=== PATIENT | female | born 1955 | race Caucasian/White ===

== ENCOUNTER 2017-09-13 17:55 | Observation (INO) ==
--- NOTE | 2017-09-13 18:20 | Emergency Department Note ---
Disposition Clinical Impression: Strain of lumbar region Qualifiers: Encounter type: subsequent encounter Qualified Code(s): S39.012D - Strain of muscle, fascia and tendon of lower back, subsequent encounter Disposition: Admitted As Inpatient Condition: Good Referrals: NONE,PCP [Primary Care Provider] - Coleman Hayward DO [Family Provider] - Forms: ED Satisfaction Letter Fall HPI - General Chief Complaint: ED Back Pain/Injury Stated Complaint: fall 2-4 days ago Time Seen by Provider: 09/13/17 18:13 Source: patient, EMS Mode of arrival: EMS Limitations: no limitations Nursing Notes Reviewed: Yes Vital Signs Reviewed: Yes - History of Present Illness HPI Narrative: Patient reports she had fallen at [facility]. She states she was picking something up and she fell backwards landing in a semisitting position. She states that she did not hit her head or sustain any other point of injury. She states she has had increased pain in her mid low back that this has been worse for 3-4 days. She relates she was seen at [place] urgent care 2-3 days ago and was told she could have a herniated disc. I reviewed the records and she was seen at urgent care on August 19 for chronic low back and thoracic pain. No other record is seen. She now reports increased pain in her low back that goes to the right leg. She denies any bladder or bowel troubles. She denies groin numbness nor any lower extremity numbness, tingling or weakness. She states that she called the squad today because she was sitting on the couch and she "could not move because of pain". The squad reports that they arrived at her house and she ambulated to open her door, hurried back to the couch, sat down and "said she could not move". Family advised the squad that they had concerns more for some alcohol use then for the back pain. Patient does report a long history of low back pain and states that her "back is bad". She states she has degenerative disc disease that has been evaluated by CT and MRI at [facility] . She states she is on SSI because of her chronic low back pain. She cannot recall the name of her physician or service at [facility]. She denies any fevers, chills or abdominal pain. She denies being on any type of anticoagulant. She states she was given a short course of gabapentin that did not help. She does not have to use of vodka. Pt Subjective Complaint: fall Onset (ago): day(s) Fall From: standing Place Fall Occurred: work Loss of Consciousness: none Prolonged Down Time?: no Symptoms Prior to Fall: none Context: tripped/slipped Location of injury: back Severity: moderate, severe Quality: sharp, dull, aching Associated symptoms (after fall): Denies: headache, neck pain, numbness, weakness, chest pain, shortness of breath, abdominal pain, hematuria, unable to walk, lightheaded, vertigo, confusion - Related Data Previous Rx's Medication Instructions Recorded Lisinopril [Zestril] 20 mg PO DAILY #30 tablet 04/03/17 Omeprazole [PriLOSEC] 40 mg PO DAILY #30 cap 04/03/17 Cyclobenzaprine [Flexeril] 10 mg PO TID #20 tablet 08/19/17 Gabapentin [Neurontin] 300 mg PO TID #20 capsule 08/19/17 Lidocaine Patch [Lidoderm 5% patch] 1 each TP DAILY #7 adh..patch 08/19/17 methylPREDNISolone [Medrol] 4 mg PO DAILY 6 Days #21 tablet 08/19/17 Allergies Allergy/AdvReac Type Severity Reaction Status Date / Time metoclopramide [From Reglan] Allergy Muscle Pain Verified 08/19/17 17:09 codeine AdvReac Gastrointestinal Verified 08/19/17 17:09 Upset All systems ED: reviewed and negative except as stated. Fall PMH - Past Medical History Medical history: Reports: cancer, GERD, hypertension, other (Alcoholism per family) Surgical history: Reports: hysterectomy, other ("Surgery on stomach sphincter") Psychiatric history: Reports: anxiety LOOM MECHANIC history: Reports: no LOOM MECHANIC history - Social History Smoking Status: Never smoker Alcohol use: Reports: occasionally Drug use: Reports: none Physical Exam - General Limitations: no limitations General appearance: alert, in no apparent distress, anxious - Head Head exam: atraumatic, normocephalic, normal inspection - Eye Eye exam: Present: normal appearance, PERRL, EOMI - ENT ENT exam: normal exam, normal oropharynx, mucous membranes moist - Neck Neck exam: Present: normal inspection, full ROM, trachea midline - Chest Chest inspection: Present: normal inspection, symmetric chest wall rise - Respiratory Respiratory exam: Present: normal lung sounds bilaterally. Absent: respiratory distress, wheezes, prolonged expiratory phase - Cardiovascular Cardiovascular exam: Present: regular rate, normal rhythm, normal heart sounds - Abdominal Exam Abdominal exam: Present: soft, Non-Tender, normal bowel sounds. Absent: tenderness, distention, guarding, rebound, rigidity, Doan's sign, tenderness at McBurney's Point - Extremities Exam Extremities exam: Present: normal inspection, full ROM, normal capillary refill. Absent: tenderness, pedal edema, calf tenderness - Expanded Lower Extremity Exam Neurovascular/Tendon exam: Present: normal capillary refill. Absent: motor deficit, sensory deficit, tendon deficit Gait: observed and normal, not tested/not observed - Back Exam Back exam: Present: normal inspection, full ROM, tenderness (Diffuse), paraspinal tenderness, vertebral tenderness (Midline lumbar), other (When I encourage the patient to log rolled to the side she tripped herself over to the left side without any difficulty for examination of her back.). Absent: CVA tenderness (R), CVA tenderness (L), muscle spasm, sciatic notch tenderness (R), sciatic notch tenderness (L), straight leg raise (R), straight leg raise (L) - Neurological Exam Neurological exam: Present: alert, oriented X3, CN II-XII intact, normal gait ( With assistance, to and from the bathroom.), reflexes normal (1+ bilateral patella and ankle jerks). Absent: motor sensory deficit - Psychiatric Psychiatric exam: Present: agitated, anxious - Skin Skin exam: Present: warm, dry, intact, normal color. Absent: diaphoresis, pallor Course Course Narrative: Patient has been very often affect and boisterous in the department. The patient has come to the emergency department with a bottle of blue Powerade that is suspected to have vodka in it. The patient does admit to drinking vodka. This bottle has been taken away from her and radiology by the x-ray tech. After this the patient has had an alcohol level return of 451. We will await the return of the radiology read on the lumbar spine but believe she will need observed with [facility] protocol. 1933: Patient's imaging results and lab results are discussed with the patient. I advised her that I would like to start her on treatment for her alcohol and observe her for the night. She is agreeable with this and Dr. Malloy has been contacted. He is agreeable with her observation. Verbal orders are obtained for her admission. Vital Signs Temperature 98.9 F 09/13/17 18:00 Pulse Rate 108 09/13/17 18:00 Respiratory Rate 18 09/13/17 18:00 Blood Pressure 151/100 09/13/17 18:00 O2 Sat by Pulse Oximetry 95 09/13/17 18:00 Temperature 98.9 F 09/13/17 18:00 Pulse Rate 108 09/13/17 18:00 Respiratory Rate 18 09/13/17 18:00 Blood Pressure 151/100 09/13/17 18:00 O2 Sat by Pulse Oximetry 95 09/13/17 18:00 Oxygen Delivery Oxygen Delivery Room Air Fall - Differential Diagnosis Likely: traumatic injury - Medical Records Medical records reviewed: Yes I reviewed the patient's medical records. XR/XR lumbar spine 2-3V XR/XR thoracic spine 3V IMPRESSION: 1. No acute osseous abnormality of the thoracic or lumbar spine. 2. Moderate S shaped thoracolumbar scoliosis. 3. Mild to moderate multilevel degenerative disc disease. D/ / Ryan Boone MD / Ryan Boone MD - Lab Data Lab results reviewed: Yes I reviewed the patient's lab results. Result diagrams: 09/13/17 18:42 Lab Results 09/13/17 Range/Units 18:42 Sodium 143 (136-145) mEq/L Potassium 3.4 L (3.5-5.1) mEq/L Chloride 106 (98-107) mEq/L Carbon Dioxide 26 (23-29) mEq/L BUN 6 (6-20) mg/dL Creatinine 0.66 (0.60-1.20) mg/dL Est GFR ( Amer) > 60 (> 60) Est GFR (Non-Af Amer) > 60 (> 60) BUN/Creatinine Ratio 9 (6-26) Glucose 98 (70-105) mg/dL Calculated Osmolality 294 (280-300) Calcium 8.4 L (8.6-10.3) mg/dL Ethyl Alcohol 451 H (Less than 10) mg/dL - Radiology Data Radiology results reviewed: Yes I reviewed the patient's radiology results. CT is performed of the lumbar spine. This shows significant scoliosis with degenerative changes. Do not see evidence for spinal cord compression, fracture or disc herniation. This is on my interpretation. Impressions Lumbar Spine CT 09/13/17 18:28 IMPRESSION: Irregularity along the inferior endplate of L5 favored to represent motion artifact, such as that seen along the sacrum. Difficult to entirely exclude fracture however similar appearance to lumbar spine radiographs from 08/19/2017 are somewhat reassuring. If there is ongoing clinical concern, MRI could help clarify. Lumbar spondylosis and levo scoliosis, similar to prior exam. Marked urinary bladder distention partially imaged. D/ / Sukhdeep Malhotra / Sukhdeep Malhotra Interpreting Provider: Sukhdeep Malhotra
[2017-09-13] MEDS ORDERED: Ketorolac 60 MG/2 ML VIAL IM ONE (18:27)
[2017-09-13] MEDS ORDERED: Orphenadrine 60 MG/2 ML VIAL IM ONE (18:27)
[2017-09-13 19:08] LABS: BUN/Creatinine Ratio 9 (6-26); Blood Urea Nitrogen 6 mg/dL (6-20); Calcium 8.4 mg/dL (8.6-10.3); Carbon Dioxide 26 mEq/L (23-29); Chloride 106 mEq/L (98-107); Ethanol 451 mg/dL (Less than 10); Glucose 98 mg/dL (70-105); Osmolality,Calculated 294 (280-300); Potassium 3.4 mEq/L (3.5-5.1); Sodium 143 mEq/L (136-145); eGFR For African Americans > 60 (> 60); eGFR For Non-African Americans > 60 (> 60)
[2017-09-13] MEDS ORDERED: Ringers Solution, Lactated 1,000 ML IVC SCH ×2 (20:00→21:03)
[2017-09-13] MEDS ORDERED: Naloxone 0.4 MG/ML INJ IVP PRN (21:03)
[2017-09-13] MEDS: Ringers Solution, Lactated 1,000 ML IVC SCH (21:41)
[2017-09-13] MEDS: Gabapentin 300 MG CAPSULE PO SCH (21:41)
[2017-09-13] MEDS ORDERED: *HR* Metoprolol 5 MG/5 ML VIAL IVP ONE ×2 (22:04→22:08)
[2017-09-14] MEDS: Ketorolac 30 MG/ML VIAL IVP SCH ×2 (02:13→08:12)
[2017-09-14] MEDS: Ringers Solution, Lactated 1,000 ML IVC SCH (05:45)
[2017-09-14] MEDS: *HR* LORazepam 2 MG/ML VIAL IVP PRN ×2 (06:54→12:55)
[2017-09-14] MEDS: Gabapentin 300 MG CAPSULE PO SCH (08:13)
[2017-09-14 08:54] LABS: INR 1.1; Prothrombin Time 11.4 Seconds (9.4-12.1)
[2017-09-14] MEDS ORDERED: Lisinopril 20 MG TABLET PO SCH (09:00)
[2017-09-14 09:10] LABS: Albumin/Globulin Ratio 1.4 (1.1-2.2); Bilirubin,Direct 0.1 mg/dL (0.0-0.2); Bilirubin,Indirect 0.5 mg/dL (0.0-1.2); Bilirubin,Total 0.6 mg/dL (0.3-1.0); Globulin 2.8 g/dL (2.4-3.5); Magnesium 1.3 mg/dL (1.6-2.6); Total Protein 6.8 g/dL (6.4-8.9)
[2017-09-14 10:46] VITALS: BP 168/106
--- NOTE | 2017-09-14 14:53 | Internal Med History&Physical ---
Date of Encounter: 09/14/17 Time of Encounter: 14:20 Assessment and Plan (1) Strain of lumbar region Current visit: Yes Status: Acute She states she feels improved now and wishes to be discharged home. Qualifiers: Encounter type: subsequent encounter Qualified Code(s): S39.012D - Strain of muscle, fascia and tendon of lower back, subsequent encounter (2) Hypomagnesemia Current visit: Yes Status: Acute We will give supplemental magnesium. (3) Hypokalemia Current visit: Yes Status: Acute We will give supplemental potassium. (4) Alcoholism Current visit: Yes Status: Acute I encouraged her to establish with a local PCP and receive follow-up treatment. Internal Medicine - H&P: HPI Chief complaint: Back pain Admitted From: Emergency Dept Plans for Post Hospital Care: Home History of present illness: Ms. Chacon is a 61 year old female who came to emergency room stating she had worsening back pain. She reports onset was approximately 4 weeks ago when she was employed at [employer]. She was assigned moving clothing racks and states she noticed some back pain after work. She has had intermittent but worsening back pain since then. She reports the day of admission she was packing things in her house in preparation to move back to [place] and she had significant pain again occur. She took 800 milligrams ibuprofen OTC with temporary improvement. When it began to worsen again she decided to come to emergency room. She admits she drank significant amount of alcohol for analgesic effect. She was evaluated in emergency room and found to have blood alcohol level of 451 mg percent. She had slight hypokalemia. She was admitted to [facility] floor until further disposition could be made. She states she feels significant improved at present time and wishes to be discharged home. She admits she is alcoholic. She denies a diagnosis of cirrhosis but states she has been told she has fatty liver disease. She has never been told she has peptic ulcer disease or disorders of her liver gallbladder or exocrine pancreas. She has had achalasia and had sphincterotomy done in 2001. Past Med Surg Social Fam HX - Past Medical History Medical history: cancer, GERD, hypertension, other Psychiatric history: anxiety - Past Surgical History Surgical History: hysterectomy, other - Social History Smoking Status: Never smoker Smokeless Tobacco Status: No Alcohol use: occasionally Drug use: none - Family History Father Hx Family Cancer: Yes (pancreatic) Mother Hx Family Cancer: Yes (lung) Internal Medicine - H&P: Meds Lisinopril [Zestril] 20 mg PO DAILY #30 tablet 04/03/17 [Rx] Omeprazole [PriLOSEC] 40 mg PO DAILY #30 cap 04/03/17 [Rx] Cyclobenzaprine [Flexeril] 10 mg PO TID #20 tablet 08/19/17 [Rx] Gabapentin [Neurontin] 300 mg PO TID #20 capsule 08/19/17 [Rx] Lidocaine Patch [Lidoderm 5% patch] 1 each TP DAILY #7 adh..patch 08/19/17 [Rx] methylPREDNISolone [Medrol] 4 mg PO DAILY 6 Days #21 tablet 08/19/17 [Rx] 3 Allergy/AdvReac Type Severity Reaction Status Date / Time metoclopramide [From Reglan] Allergy Muscle Pain Verified 08/19/17 17:09 codeine AdvReac Gastrointestinal Verified 08/19/17 17:09 Upset All Systems PM: A 10-system review of systems was performed and is negative for pertinent findings except as documented above in the HPI. Review of systems: Gen.: She states her weight has been stable the past few months Cardiovascular: She has history of hypertension but denies DE heart failure and angina DVT or pulmonary embolus Respiratory: She is a lifelong nonsmoker denies chronic lung disease. 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 She received chemotherapy and believe she is cancer free at this time. GI: As per history of present illness : She had kidney stones approximately 2009 without recurrence. She denies other kidney or bladder disorders Neurologic: She denies large distribution strokes or seizures. Endocrine: She has hyperlipidemia but denies diabetes or thyroid disease Hematology/oncology: She had molar with metastases many years ago and received chemotherapy and believes she is cured. She denies other malignancies or anemia Psychiatric: She has anxiety and depression. Musko skeletal: She reports degenerative disc disease, degenerative joint disease, and scoliosis. - Constitutional Vitals: Temp Pulse Resp BP Pulse Ox 98.6 F 86 17 168/106 92 09/14/17 10:00 09/14/17 10:00 09/14/17 10:00 09/14/17 10:00 09/14/17 10:00 Exam: Gen.: She is a well-developed well-nourished female resting comfortably in bed who appears in no severe distress at present time HEENT: Head is atraumatic and normocephalic. Eyes: EOMI. There is no scleral icterus. Mouth: Mucosa is moist. Neck: Supple and nontender. There is no thyromegaly or adenopathy noted. Heart: Regular with a 2 to 3/6 systolic murmur heard at left sternal border. It is increased with Valsalva maneuver. Lungs: No wheezes or crackles are heard. Abdomen: Soft and nontender. No masses or guarding are noted. Extremities: There is no cyanosis edema or clubbing noted. Dorsalis pedis and posterior tibial pulses are trace palpable bilaterally. Neurologic: Mental status: She is talkative and a good historian. Cranial nerves: Smile is symmetric. Forehead wrinkles bilaterally. Tongue protrudes midline. EOMI. Motor: She has a fine tremor at rest. There is no pronator drift. Cerebellar: Finger to nose is intact bilaterally. Skin: Warm and dry Internal Med - H&P Results - Labs CBC & Chem 7: 09/13/17 18:42 Labs: Liver Function 09/14/17 Range/Units 08:08 Total Bilirubin 0.6 (0.3-1.0) mg/dL Direct Bilirubin 0.1 (0.0-0.2) mg/dL AST 55 H (13-39) Units/L ALT 34 (7-52) Units/L Alkaline Phosphatase 66 (34-104) Units/L Albumin 4.0 (3.5-5.7) g/dL
[2017-09-14] MEDS ORDERED: Magnesium Oxide 400 MG TABLET PO ONE (15:07)
--- NOTE | 2017-09-14 15:10 | Discharge Summary ---
Date of Encounter: 09/14/17 Time of Encounter: 14:20 - Discharge Diagnosis (1) Strain of lumbar region Priority: Primary Status: Acute Qualifiers: Encounter type: subsequent encounter Qualified Code(s): S39.012D - Strain of muscle, fascia and tendon of lower back, subsequent encounter (2) Hypomagnesemia Priority: Secondary Status: Acute (3) Hypokalemia Priority: Secondary Status: Acute (4) Alcoholism Priority: Secondary Status: Acute Hospital course: Ms. Chacon is a 61 year old female who came to emergency room stating she had worsening back pain. She reports onset was approximately 4 weeks ago when she was employed at [employer]. She was assigned moving clothing racks and states she noticed some back pain after work. She has had intermittent but worsening back pain since then. She reports the day of admission she was packing things in her house in preparation to move back to [place] and she had significant pain again occur. She took 800 milligrams ibuprofen OTC with temporary improvement. When it began to worsen again she decided to come to emergency room. She admits she drank significant amount of alcohol for analgesic effect. She was evaluated in emergency room and found to have blood alcohol level of 451 mg percent. She had slight hypokalemia. She was admitted to [facility] until further disposition could be made. Initial orders were written by the emergency room physician. I saw her on September 14 and performed the history and physical and discharge. Repeat blood alcohol level return significantly decreased at 58 mg percent. She was seen by mental health clinic personnel and a follow-up plan was devised. She admits she is alcoholic. She wished to be discharged home which I felt was reasonable. She will be given supplemental magnesium and supplement potassium for 7 days on prescription at discharge. I encouraged her to take OTC multivitamin. She will use OTC analgesics for her lumbar pain. - Time Spent with Patient Total time spent providing and/or coordinating discharge services: - Discharge Medications Prescriptions: Magnesium Oxide [Mag-Ox] 400 mg PO DAILY #7 tablet Potassium Chloride 10 meq PO DAILY #7 tab.er.prt Home Medications: Lisinopril [Zestril] 20 mg PO DAILY #30 tablet 04/03/17 [Rx] Omeprazole [PriLOSEC] 40 mg PO DAILY #30 cap 04/03/17 [Rx] Cyclobenzaprine [Flexeril] 10 mg PO TID #20 tablet 08/19/17 [Rx] Gabapentin [Neurontin] 300 mg PO TID #20 capsule 08/19/17 [Rx] Lidocaine Patch [Lidoderm 5% patch] 1 each TP DAILY #7 adh..patch 08/19/17 [Rx] methylPREDNISolone [Medrol] 4 mg PO DAILY 6 Days #21 tablet 08/19/17 [Rx] Magnesium Oxide [Mag-Ox] 400 mg PO DAILY #7 tablet 09/14/17 [Rx] Potassium Chloride 10 meq PO DAILY #7 tab.er.prt 09/14/17 [Rx] Allergies/Adverse Reactions: 3 Allergy/AdvReac Type Severity Reaction Status Date / Time metoclopramide [From Reglan] Allergy Muscle Pain Verified 08/19/17 17:09 codeine AdvReac Gastrointestinal Verified 08/19/17 17:09 Upset Date of admission: 09/13/17 20:15 Primary care physician: PCP NONE Consults: 09/14/17 11:22 Consult to Psychiatry [CONS] Routine Consulting Provider: Psychiatry Oliver Reason for Consult: consult to [facility] to evaluate "capacity" Time Notified: 11:22 Call Completed: Yes - Constitutional Vitals: Temp Pulse Resp BP Pulse Ox 98.6 F 86 17 168/106 92 09/14/17 10:00 09/14/17 10:00 09/14/17 10:00 09/14/17 10:00 09/14/17 10:00 - Patient Status Disposition: Home, Self-Care Condition: Good Functional capacity at discharge: independent ambulation Overall status at discharge: patient is progressing back to baseline - Discharge Instructions Follow Up With: NONE,PCP [Primary Care Provider] - 1 week - Diet and Activity Activity: resume usual activities as tolerated Diet: advance to your usual diet
[2017-09-14] MEDS ORDERED: Thiamine (B-1) 100 MG, Folic Acid 1 MG, MVI, adult with vitamin K 10 ML in 0.9 % Sodi... IVPB SCH (18:00)
== END 2017-09-14 15:35 | disposition home or self-care (01) ==
LOC: INPPIK 17:55 → EMEROOPIK 17:55 → INPPIK 21:04
PROVIDERS: ADMIT Internal Medicine; ATTEND Internal Medicine